=== PATIENT | male | born 1950 | race Caucasian/White ===

== ENCOUNTER 2017-11-22 16:39 | Inpatient (IN) | payer MEDICARE, OTHER ==
[~2017-11-22] VITALS: Ht 165.1 cm; Wt 70.8 kg
--- NOTE | 2017-11-22 17:00 | NUR ---
AAOX3, CAME TO ER C/O BLACK TARRY STOOL THIS AM. SKIN IS WARM AND DRY. NO ACUTE RESP/CARDIAC DISTRESS NOTED. PLACED ON MONITOR AND HOSPITAL GOWN. DR MAYORGA AT BS FOR EVAL.
[2017-11-22 17:29] LABS: BASOPHILS # (AUTO) 0.2 /CMM (0.0-0.2); BASOPHILS % (AUTO) 2.6 % (0.0-2.0); EOSINOPHILS % (AUTO) 1.4 % (0.0-6.0); HEMATOCRIT 23 % (39-51); HEMOGLOBIN 7.8 g/dL (13.5-17.5); LYMPHOCYTES # (AUTO) 1.1 /CMM (0.8-4.8); LYMPHOCYTES % (AUTO) 12.7 % (20.0-44.0); MEAN CORPUSCULAR HEMOGLOBIN 32 PG (26.0-33.0); MEAN CORPUSCULAR HGB CONC 34 g/dl (31.0-36.0); MEAN CORPUSCULAR VOLUME 94 fL (80-96); MONOCYTES # (AUTO) 0.7 /CMM (0.1-1.30); MONOCYTES % (AUTO) 7.7 % (2.0-12.0); NEUTROPHILS # (AUTO) 6.4 /CMM (1.8-8.9); NEUTROPHILS % (AUTO) 75.6 % (43.0-81.0); PLATELET COUNT (AUTO) 135 /CMM (150-450); RDW COEFFICIENT OF VARIATION 13.7 (11.5-15.0); RED BLOOD CELL COUNT(AUTO) 2.43 MIL/uL (4.5-6.0); WHITE BLOOD COUNT (AUTO) 8.5 K/uL (4.3-11.0)
[2017-11-22] MEDS ORDERED: IV NS 0.9% 1,000 ML BAG IV ONE (17:30)
[2017-11-22] MEDS ORDERED: ONDANSETRON HCL/PF 4 MG/2 ML VIAL IVP ONE ×2 (17:30→18:30)
[2017-11-22 17:36] LABS: CALCIUM, SERUM 8.5 mg/dL (8.5-10.1); CREATININE 1.2 mg/dL (0.6-1.3); POTASSIUM 3.9 mmol/L (3.5-5.1)
[2017-11-22] MEDS ORDERED: ONDANSETRON HCL/PF 4 MG/2 ML VIAL ONE ×2 (17:36→18:10)
[2017-11-22 17:42] LABS: ALBUMIN 2.5 g/dL (3.4-5.0); BILIRUBIN,DIRECT 0.1 mg/dL (0.0-0.2); BILIRUBIN,TOTAL 0.3 mg/dL (0.2-1.0); TOTAL PROTEIN, SERUM 5.3 g/dL (6.4-8.2)
--- NOTE | 2017-11-22 17:42 | NUR ---
XRAY AT BS
[2017-11-22 17:51] LABS: PARTIAL THROMBOPLASTIN TIME 52 SEC (23-34)
[2017-11-22] MEDS ORDERED: CLON0.5T12 PO (17:52)
[2017-11-22] MEDS ORDERED: GABA-534 PO (17:52)
[2017-11-22] MEDS ORDERED: DIPH25CA6 PO (17:52)
[2017-11-22] MEDS ORDERED: CHOL400T11 PO (17:52)
[2017-11-22] MEDS ORDERED: VENL150C58 PO (17:52)
[2017-11-22] MEDS ORDERED: ASPI-1152 PO (17:52)
[2017-11-22] MEDS ORDERED: ASCO500T9 PO (17:52)
[2017-11-22] MEDS ORDERED: METO25TA20 PO (17:52)
[2017-11-22] MEDS ORDERED: LORA10TA7 PO (17:52)
[2017-11-22] MEDS ORDERED: MULT-24 PO (17:52)
[2017-11-22] MEDS ORDERED: EZET10TA14 PO (17:52)
[2017-11-22] MEDS ORDERED: CILO100T PO (17:52)
[2017-11-22] MEDS ORDERED: TRAM50TA2 PO (17:52)
[2017-11-22] MEDS ORDERED: WARF5TAB8 PO (17:52)
[2017-11-22] MEDS ORDERED: TRAZ-182 PO (17:52)
[2017-11-22] MEDS ORDERED: ROSU10TA PO (17:52)
[2017-11-22 17:57] LABS: INR > 10.00 (0.85-1.15)
--- NOTE | 2017-11-22 18:04 | NUR ---
PAGED EPIC FOR PANEL - DIRECTOR OF PROVIDER RELATIONS DR. ISAAC
[2017-11-22] MEDS ORDERED: HYDR-3976 PO (18:06)
[2017-11-22] MEDS ORDERED: MORPHINE SULFATE INJ 4 MG/ML DISP.SYRIN ONE ×2 (18:10→19:27)
--- NOTE | 2017-11-22 18:24 | NUR ---
CALLED NURSE SUP FOR TELE BED
[2017-11-22] MEDS ORDERED: MORPHINE SULFATE INJ 2 MG/ML DISP.SYRIN IV ONE (18:30)
[2017-11-22] MEDS ORDERED: PHYTONADIONE INJ 5 MG in IV D5W 50 ML IV ONE ×2 (19:00→21:00)
[2017-11-22] MEDS ORDERED: Z GUARD REMEDY 2 OZ OINT TP PRN (19:30)
[2017-11-22] MEDS ORDERED: MAG HYDROX/AL HYDROX/SIMETH 30 ML UDC PO PRN (19:30)
[2017-11-22] MEDS ORDERED: ONDANSETRON HCL/PF 4 MG/2 ML VIAL IVP PRN (19:30)
[2017-11-22] MEDS ORDERED: MORPHINE SULFATE INJ 2 MG/ML DISP.SYRIN IV PRN (19:30)
[2017-11-22] MEDS ORDERED: MAGNESIUM HYDROXIDE 30 ML UDC PO PRN (19:30)
[2017-11-22] MEDS ORDERED: ZOLPIDEM TARTRATE 5 MG TABLET PO PRN (19:30)
--- NOTE | 2017-11-22 19:33 | NUR ---
TELE 117-1
--- NOTE | 2017-11-22 19:40 | NUR ---
REPORT GIVEN TO ED, FILM INSPECTOR NURSE FOR MINDA.
--- NOTE | 2017-11-22 19:43 | NUR ---
REPORT GIVEN TO CHANTELLE DAVENPORT FOR CONTINUATION OF CARE.
[2017-11-22 20:30] VITALS: BP 106/48
--- NOTE | 2017-11-22 20:40 | NUR ---
CARE MANAGEMENT ASSOCIATE NOTES @20:20 PATIENT ADMITTED TO ROOM 117-1 FROM ER. ALERT AND ORIENTED X 4. AMBULATORY. WITH RIGHT SHOULDER IV ACCESS #20 GUAGE. INTACT AND FLUSHES EASY. NO SIGNS OF DISTRESS. PATIENT COMPLAINS OF PAIN ON LEFT SHOULDER. VERBALIZED SOMETHING WAS TORN FROM HIS SHOULDER FROM 10 DAYS AGO WHEN HE WAS REACHING ON SOMETHING. PATIENT WITH ORDER FOR MORPHINE. HGB AT 7.8 MD AWARE. BODY SKIN ASSESSMENT DONE WITH PICTURE TAKEN IN CHART.
[2017-11-22 20:49] VITALS: BP 106/48
[2017-11-22] MEDS ORDERED: PHYTONADIONE INJ 10 MG/1 ML AMPUL ONE (21:07)
[2017-11-22] MEDS: IV NS 0.9% 1,000 ML IV PRN (21:14)
[2017-11-22 23:27] LABS: BASOPHILS % (AUTO) 0.2 % (0.0-2.0); EOSINOPHILS % (AUTO) 2.3 % (0.0-6.0); LYMPHOCYTES # (AUTO) 1.2 /CMM (0.8-4.8); LYMPHOCYTES % (AUTO) 15.3 % (20.0-44.0); MEAN CORPUSCULAR HEMOGLOBIN 32 PG (26.0-33.0); MEAN CORPUSCULAR HGB CONC 33 g/dl (31.0-36.0); MEAN CORPUSCULAR VOLUME 97 fL (80-96); MONOCYTES # (AUTO) 0.9 /CMM (0.1-1.30); MONOCYTES % (AUTO) 11.5 % (2.0-12.0); NEUTROPHILS # (AUTO) 5.7 /CMM (1.8-8.9); NEUTROPHILS % (AUTO) 70.7 % (43.0-81.0); PLATELET COUNT (AUTO) 117 /CMM (150-450); RDW COEFFICIENT OF VARIATION 14.8 (11.5-15.0); RED BLOOD CELL COUNT(AUTO) 2.09 MIL/uL (4.5-6.0)
[2017-11-22 23:34] VITALS: BP 102/45
[2017-11-22] MEDS ORDERED: MORPHINE SULFATE INJ 2 MG/ML DISP.SYRIN ONE (23:45)
[2017-11-22 23:49] VITALS: BP 98/46
[2017-11-23] VITALS (11 sets, daily range): BP systolic 90–153; BP diastolic 40–80
[2017-11-23 00:25] LABS: HEMOGLOBIN 6.7 g/dL (13.5-17.5)
[2017-11-23 00:26] LABS: HEMATOCRIT 20 % (39-51)
--- NOTE | 2017-11-23 00:28 | NUR ---
RN NOTES RECEIVED CRITICAL RESULT FROM [facility] "LAB" HGB OF 6.8. PATIENT JUST STARTED BLOOD TRANSFUSION TO RECEIVE 2 UNITS OF RBC. WILL CHECK H AND H AGAIN AFTER 2 UNITS OF BLOOD. Addendum: 11/23/17 at 0036 by CHANTELLE IRWIN RN HGB 6.7
[2017-11-23 01:08] LABS: EOSINOPHILS % (MANUAL) 3 % (0-4); LYMPHOCYTES % (MANUAL) 16 % (16-48); MONOCYTES % (MANUAL) 12 % (0-11.0); NEUTROPHILS % (MANUAL) 69 (42-76)
[2017-11-23 07:16] LABS: BASOPHILS % (AUTO) 0.1 % (0.0-2.0); EOSINOPHILS % (AUTO) 2.7 % (0.0-6.0); HEMATOCRIT 30 % (39-51); LYMPHOCYTES % (AUTO) 12.8 % (20.0-44.0); MEAN CORPUSCULAR HEMOGLOBIN 33 PG (26.0-33.0); MEAN CORPUSCULAR HGB CONC 34 g/dl (31.0-36.0); MEAN CORPUSCULAR VOLUME 97 fL (80-96); MONOCYTES # (AUTO) 0.8 /CMM (0.1-1.30); MONOCYTES % (AUTO) 10.1 % (2.0-12.0); NEUTROPHILS # (AUTO) 5.8 /CMM (1.8-8.9); NEUTROPHILS % (AUTO) 74.3 % (43.0-81.0); PLATELET COUNT (AUTO) 115 /CMM (150-450); RDW COEFFICIENT OF VARIATION 14.9 (11.5-15.0); RED BLOOD CELL COUNT(AUTO) 3.04 MIL/uL (4.5-6.0); WHITE BLOOD COUNT (AUTO) 7.8 K/uL (4.3-11.0)
[2017-11-23 07:22] LABS: INR 1.27 (0.87-1.13)
--- NOTE | 2017-11-23 07:25 | NUR ---
RN INITIAL NOTES; PATIENT RESTING IN BED. NONLABORED BREATHING NOTED ON ROOM AIR. DENYING PAIN AT THE MOMENT. IV SITE ON RIGHT UPPER ARM PATENT AND INTACT, GAUGE 20. BED IN LOWEST LOCKED POSITION. CALL LIGHT WITHIN REACH. PATIENT SR 89 ON TELE MONITOR. WILL CONTINUE TO MONITOR
[2017-11-23 07:30] LABS: ALBUMIN 2.4 g/dL (3.4-5.0); BILIRUBIN,TOTAL 0.7 mg/dL (0.2-1.0); CALCIUM, SERUM 8.1 mg/dL (8.5-10.1); CREATININE 0.9 mg/dL (0.6-1.3); MAGNESIUM 2.1 mg/dL (1.8-2.4); PHOSPHORUS 3.9 mg/dL (2.5-4.9); POTASSIUM 3.9 mmol/L (3.5-5.1); TOTAL PROTEIN, SERUM 5.1 g/dL (6.4-8.2)
--- NOTE | 2017-11-23 08:00 | NUR ---
LEFT SHOULDER ASSESSMENT PATIENT STATING THAT HE "OFTEN" FEELS PAIN ON HIS LEFT SHOULDER , DUE TO PAST "ROTATOR CUFF INJURY" PER PATIENT, HE HAS SEEN HIS PRIMARY DOCTOR FOR THIS Addendum: 11/23/17 at 0913 by OLIVIA BOLDEN RN Amended: Links added.
[2017-11-23] MEDS: MORPHINE SULFATE INJ 4 MG/ML DISP.SYRIN IV PRN ×3 (08:11→15:43)
--- NOTE | 2017-11-23 10:15 | NUR ---
RECEIVED AN ORDER FROM DR PONCHO JERONIMO TO ORDER PROTONIX IV 40 MG BID. VERBAL READBACK DONE
--- NOTE | 2017-11-23 10:16 | NUR ---
BENEFITS AND RISKS OF TREATMENT PLAN EXPLAINED TO PATIENT BY DR ISAAC AND Dee. DR ISAAC EDUCATED PATIENT ON IMPORTANCE OF FOLLOWING UP WITH GI MD WELL HEMOTOLOGIST TODAY PATIENT REFUSING TO STAY, STATED THAT HE WISHES TO SIGN AMA HE HAS A FLIGHT TODAY AT 4 PM PATIENT EDUCATED MULTIPLE TIMES OF THE RISKS OF LEAVING THE HOSPITAL AGAINST MEDICAL ADVICE PATIENT STILL REFUSING TO STAY PER DR ISAAC, OK FOR PATIENT TO EAT TODAY SINCE HE WILL NOT WAIT FOR GI CONSULT CARDIAC DIET PER ORDERS
[2017-11-23] MEDS: PANTOPRAZOLE 40 MG VIAL IV SCH ×2 (10:55→17:19)
[2017-11-23] MEDS ORDERED: HEPARIN INFUSION/D5W 500 ML IV PRN (11:30)
--- NOTE | 2017-11-23 11:38 | NUR ---
PATIENT DECIDED TO REMAIN IN HOSPITAL FOR TREATMENT PLAN, PER DR KEARNS PLACE PATIENT ON CLEAR LIQUID DIET TILL FURTHER GI PLANS VERBAL READBACK DONE
[2017-11-23] MEDS ORDERED: FOLIC ACID 1 MG TABLET PO SCH (12:00)
--- NOTE | 2017-11-23 12:23 | NUR ---
SINUS RHYTHM 93 ON EKG
--- NOTE | 2017-11-23 12:30 | NUR ---
PER BENNIE SUH TO START HEPARIN DRIP. AWARE THAT PATIENT POSSIBLY UNDERGOING EGD. PER HER ORDERS, NO IV PUSH HEPARIN
--- NOTE | 2017-11-23 13:07 | NUR ---
TROPONIN LEVEL OF 0.[address] ISAAC. PER HER ORDERS, ORDER 2 MORE TROPONIN CHECK Q 6 HOURS . PER HER ORDERS, KEEP PATIENT NPO PATIENT DENYING CHEST PAIN AT THE MOMENT. NONLABORED BREATHING NOTED ON ROOM AIR. SPO2 WNL
--- NOTE | 2017-11-23 13:10 | NUR ---
INFORMED DR ISAAC THAT PATIENT HAS NOT BEEN SEEN BY GI DOCTOR PER DR ISAAC, DR GARCIA AWARE OF CONSULT AWARE OF GI CONSULT
--- NOTE | 2017-11-23 13:43 | NUR ---
ECHOCARDIOGRAM - PER DR ISAAC VERBAL READBACK DONE
--- NOTE | 2017-11-23 14:12 | NUR ---
DR ISAAC NOTIFIED THAT HEPARIN DRIP TO BE STARTED UNABLE TO GET HOLD OF GI NO PLANS OF ENDOSCOPY YET
--- NOTE | 2017-11-23 14:30 | NUR ---
FAXED HEPARIN DRIP SHEET TO [facility] FROM [facility]ARM[facility]Y AND VERIFIED CALCULATIONS
--- NOTE | 2017-11-23 15:46 | NUR ---
RN NOTES: LAB UNABLE TO ADD PTT TO TODAYS DRAW NOTIFIED AGAIN OF STAT PTT
--- NOTE | 2017-11-23 16:02 | NUR ---
RN NOTES; VERIFIED PT/INR, 11/22- PTT WITH EXPRESSIVE THERAPIST SOONI, HEPARIN INITIATED PER PROTOCOL, APTT IN 6 HOURS
--- NOTE | 2017-11-23 16:20 | NUR ---
VERIFIED WITH DR CHAVEZ THAT HEPARIN DRIP IS DISCONTINUED. PER DR CHAVEZ, STOP HEPARIN INFUSION HEPARIN INFUSION STOPPED
--- NOTE | 2017-11-23 16:41 | NUR ---
RECEIVED A TELEPHONE ORDER FROM DR ISAAC TO ORDER NICOTINE PATCH 14 MG DAILY VERBAL READBACK DONE NOTIFIED DO THAT MED RECON IS NOT COMPLETED
[2017-11-23] MEDS ORDERED: NICOTINE PATCH (14MG) 14 MG PATCH.TD24 TD SCH (17:00)
--- NOTE | 2017-11-23 17:00 | NUR ---
SPOKE TO DR DENG, INFORMED HIM OF GI CONSULT PER DR ISAAC
[2017-11-23] MEDS: IV NS 0.9% 1,000 ML IV PRN (17:20)
--- NOTE | 2017-11-23 17:28 | NUR ---
Patient is alert, he lives with his family. He is from [place] visiting [place]. Patient is ambulatory and independent with [facility]. His pcp is from [place]. Patient plan to return home once discharge. Addendum: 11/23/17 at 1729 by FANNY BETH RN Amended: Links added.
--- NOTE | 2017-11-23 18:56 | NUR ---
RECEIVED ORDER FORM DR ISAAC, PATIENT TO BE PLACED ON CLEAR LIQUID DIET
[2017-11-23] MEDS ORDERED: TRAMADOL HCL 50 MG TABLET PO PRN (19:00)
--- NOTE | 2017-11-23 19:10 | NUR ---
WOOD BOX MAKER NOTE PATIENT IS AOX3, SPEECH CLEAR, AGITATED, ABLE TO MAKE NEEDS KNOWN, ON ROOM AIR, NO CARDIAC OR RESPIRATORY DISTRESS, PATIENT REMOVING TELE MONITOR STATING HE PLANS TO LEAVE, AMA WAS EXPLAINED TO PATIENT CONTINUES TO REFUSE TO STAY, PATIENT REQUESTING FOOD, EXPLAINED CLEAR LIQUID DIET CONTINUES TO INSIST ON SOLID FOOD, PONCHO FERNANDEZ NOTIFIED, RIGHT UPPER ARM #20G PATENT FLUSHING WELL, SAFETY MAINTAINED AT ALL TIMES, BED IN LOW LOCKED POSITION, CALL LIGHT WITHIN REACH, WILL CONTINUE TO MONITOR FOR ANY CHANGES OF CONDITION.
--- NOTE | 2017-11-23 19:22 | NUR ---
RN CLOSING NOTES PATIENT RESTING IN BED. NONLABORED BREATHING NOTED ON ROOM AIR. DENYING PAIN AT THE MOMENT. IV SITE ON RIGHT UPPER ARM PATENT AND INTACT, GAUGE 20. BED IN LOWEST LOCKED POSITION. CALL LIGHT WITHIN REACH. PATIENT REMOVED EKG LEADS, REFUSING TO PLACE THEM ON, STATING THAT HE WILL LEAVE TONIGHT. INFORMED DR ISAAC THAT PATIENT MIGHT BE LEAVING AMA TONIGHT PATIENT REFUSING CLEAR LIQUID DIET OFFERED, REFUSING JUICE AND BEVERAGES EDUCATED HIM ON IMPORTANCE OF STAYING AND FOLLOWING UP WITH GI.PATIENT STILL REFUSING. EXIST CARE INSTRUCTIONS DISCUSSED WITH PATIENT. CD OF IMAGING PROVIDED PER ORDERS. ALL BELONGINGS WITH PATIENT. REFUSING SKIN PICTURES ENDORSED TO Torey GONZALEZ RN FOR CONTINUATION OF CARE NO NEURO CHANGES NOTED DURING SHIFT NO NAUSEA AND NO VOMITING NOTED. NO TARRY STOOLS NOTED DURING SHIFT
--- NOTE | 2017-11-23 20:05 | NUR ---
CELL FEED DEPARTMENT SUPERVISOR NOTE PATIENT IS AOX3, AGITATED INSISTING ON LEAVING HOME, PONCHO FERNANDEZ AWARE PER AM NURSE, PATIENT HAS NO RESPIRATORY OR CARDIAC DISTRESS, NO CHEST PAIN, AMBULATORY, FREE RANGE OF MOTION OF LIMBS, DENIES PAIN, PATIENT GIVEN TWO SANDWICHES AND TWO JUICES, ALL BELONGINGS WITH HIM, IV OUT, PATIENT SIGNED CONSENTS, REFUSED TO SIGN AMA FORM PLACED AN X, PT INSTRUCTED ON RISKS OF LEAVING WITHOUT MD CONSENT, GLADIS SCHUMACHER OF [facility] FERNANDEZ, SPOKE WITH PATIENT CONTINUED TO LEAVE AMA, GABY CALLED FOR PATIENT, ESCORTED VIA WHEELCHAIR TO LOBBY BY [facility] PROVIDER.
[2017-11-23] MEDS ORDERED: TRAZODONE 50 MG TABLET PO SCH (22:00)
[2017-11-24] MEDS ORDERED: GABAPENTIN 300 MG CAPSULE PO SCH (09:00)
[2017-11-24] MEDS ORDERED: METOPROLOL TARTRATE 25 MG TABLET PO SCH (09:00)
[2017-11-24] MEDS ORDERED: VENLAFAXINE XR 150 MG CAP.SR.24H PO SCH (09:00)
[2017-11-24] MEDS ORDERED: clonazePAM 0.5 MG TABLET PO SCH (09:00)
[2017-11-24] MEDS ORDERED: LORATADINE 10 MG TABLET PO SCH (09:00)
[2017-11-24] MEDS ORDERED: EZETIMIBE 10 MG TABLET PO SCH (09:00)
[2017-11-24] MEDS ORDERED: ATORVASTATIN 10 MG TABLET PO SCH (22:00)
== END 2017-11-23 20:00 | disposition left against medical advice (07) | DRG 377 ==
LOC: ER 16:43 → TELE1 19:58
PROVIDERS: ADMIT Student in an Organized Health Care Education/Training Program; ATTEND Student in an Organized Health Care Education/Training Program
PROC: 30233N1 Transfusion of Nonautologous Red Blood Cells into Peripheral Vein, Percutaneous Approach (ICD-10-PCS; principal; 2017-11-22)
DX: K92.2 Gastrointestinal hemorrhage, unspecified (principal); I21.A1 Myocardial infarction type 2; D62 Acute posthemorrhagic anemia; D68.59 Other primary thrombophilia; E87.1 Hypo-osmolality and hyponatremia; E46 Unspecified protein-calorie malnutrition; D68.9 Coagulation defect, unspecified; D61.818 Other pancytopenia; I25.10 Atherosclerotic heart disease of native coronary artery without angina pectoris; Z95.2 Presence of prosthetic heart valve; I73.9 Peripheral vascular disease, unspecified; Z95.1 Presence of aortocoronary bypass graft; Z87.891 Personal history of nicotine dependence; R74.0 Nonspecific elevation of levels of transaminase and lactic acid dehydrogenase [LDH]; F10.10 Alcohol abuse, uncomplicated; I10 Essential (primary) hypertension; Z85.828 Personal history of other malignant neoplasm of skin; E78.5 Hyperlipidemia, unspecified; D73.1 Hypersplenism; D53.9 Nutritional anemia, unspecified; K76.9 Liver disease, unspecified; T45.515A Adverse effect of anticoagulants, initial encounter
CPT/HCPCS: 36415; 71045-TC; 80048-TC; 80053-TC; 80061-TC; 80076-TC; 83690-TC; 83735-TC; 84100-TC; 84484-TC; 85025-TC; 85610-TC; 85730-TC; 86850-TC; 86921-TC; 87081-TC; 93307-TC; A4606; C9113; J1644; J2270; J2405; J3430; J7030; J7060; P9016-BL; Z7610